=== PATIENT | male | born 1985 | race Caucasian/White ===

== ENCOUNTER 2020-04-29 10:11 | Emergency (ER) | payer OTHER ==
[2020-04-29 10:46] LABS: #Basophils 0.1 thou/uL (0.0-0.2); #Eosinphils 0.3 thou/uL (0.0-0.7); #Lymphocytes 2.5 thou/uL (1.20-3.40); #Neutrophils 5.4 thou/uL (1.40-6.50); %Basophils 1.4 % (0.0-1.0); %Eosinophils 3.1 % (0.0-10.0); %Monocytes 10.4 % (0.0-10.0); %Neutrophils 58.2 % (42.0-75.0); Hemoglobin 15.6 g/dL (14.0-18.0); Mean Corpuscular HGB CONC 33.1 g/dL (32.0-36.0); Mean Corpuscular Volume 96.4 fL (78.0-98.0); Mean Platelet Volume 7.1 fL (7.4-10.4); Platelet Count 256 thou/uL (130-400); RBC Distribution Width 12.2 % (11.5-14.5); Red Blood Cell (RBC) Count 4.89 mill/uL (4.70-6.10); White Blood Cell (WBC) Count 9.3 thou/uL (4.8-10.8)
[2020-04-29 11:13] LABS: ALT (SGPT) 24 U/L (8-55); AST (SGOT) 30 U/L (5-34); Albumin 4.3 g/dL (3.5-5.0); Alkaline Phosphatase 88 U/L (40-110); Anion Gap 14 mmol/L (10-20); BUN (Urea Nitrogen) 16 mg/dL (8.9-20.6); Bilirubin, Total 0.4 mg/dL (0.2-1.2); CK (CPK) 168 U/L (30-200); Calc. Creatinine Clearance 0 mL/min (70-130); Calcium 9.2 mg/dL (7.8-10.44); Carbon Dioxide 22 mmol/L (22-29); Chloride 106 mmol/L (98-107); Estimated GFR-MDRD Greater than 90; Globulin 3.7 g/dL (2.4-3.5); Glucose 89 mg/dL (70-105); Lipase 32 U/L (8-78); Potassium 5.5 mmol/L (3.5-5.1); Sodium 136 mmol/L (136-145)
[2020-04-29] MEDS ORDERED: Aspirin 325 MG TAB ONE (11:19)
[2020-04-29] MEDS ORDERED: Ketorolac Tromethamine 30 MG/ML VIAL ONE (11:19)
--- NOTE | 2020-04-29 13:05 | RAD ---
PORTABLE CHEST: HISTORY: The patient has not been feeling well for the last couple of days. Chest pain and headache. FINDINGS: Heart size is within normal limits considering the portable technique. Mediastinal structures are un remarkable. Retrocardiac parenchymal changes are difficult to assess on this exam. This may just re present a confluence of shadows. No signs of failure. IMPRESSION: No definite infiltrative process. If a retrocardiac infiltrate is suspected, AP and lateral chest fi lm is recommended. POS: [facility]
[2020-04-29 14:16] LABS: Troponin I 0.012 ng/mL (< 0.028)
== END 2020-04-29 14:40 | disposition home or self-care (01) ==
LOC: ERS 10:11
DX: R07.9 Chest pain, unspecified (principal); F17.210 Nicotine dependence, cigarettes, uncomplicated
CPT/HCPCS: 36415; 71045; 80053; 82550; 83690; 83880; 84484; 85025; 93005; 96372; J1885

== ENCOUNTER 2020-04-30 10:27 | Outpatient (CLI) | payer OTHER ==
--- NOTE | 2020-04-30 15:37 | ULT ---
GALLBLADDER ULTRASOUND: 04/30/20 HISTORY: Cholecystitis. Right upper quadrant pain. FINDINGS: The liver demonstrates increased echogenicity consistent with fatty infiltration. No focal mass or in trahepatic ductal dilatation is seen. The gallbladder, right kidney, and visualized portions of the pancreas (still not seen) are normal. The common duct measures 4 mm I diameter. No free fluid is seen in Palacios's pouch. IMPRESSION: 1. Fatty liver. 2. No evidence of cholelithiasis or cholecystitis. POS: [facility]
== END 2020-04-30 10:28 | disposition home or self-care (01) ==
LOC: BICULT 10:27
PROVIDERS: ATTEND Specialist
DX: K81.9 Cholecystitis, unspecified (principal); K76.0 Fatty (change of) liver, not elsewhere classified
CPT/HCPCS: 76705

== ENCOUNTER 2021-10-12 08:02 | Outpatient (CLI) | payer OTHER | END 2021-10-12 08:03 | disposition home or self-care (01) | LOC: BICMAMMO 08:02 | PROVIDERS: ATTEND Specialist | DX: N64.4 Mastodynia (principal) | CPT/HCPCS: 77066; G0279 ==

== ENCOUNTER 2023-08-30 08:18 | Outpatient (CLI) | payer OTHER | END 2023-08-30 08:19 | disposition home or self-care (01) | LOC: BICMAMMO 08:18 | PROVIDERS: ATTEND Nurse Practitioner Family | DX: N64.4 Mastodynia (principal) | CPT/HCPCS: 77066; G0279 ==